=== PATIENT | female | born 1995 | race Caucasian/White ===

== ENCOUNTER 2018-07-14 12:56 | Emergency (ER) | payer BC ==
[~2018-07-14] VITALS: Ht 160 cm; Wt 100.0 kg
[~2018-07-14 12:56] MED LIST: CIPROFLOXACN500 MG PO; PERCOCET 5/325M1 TAB PO
[2018-07-14] MEDS ORDERED: PROVENTIL108 MCG/AC IN (14:31)
[2018-07-14] MEDS ORDERED: ZITHROMAX250 MG PO (14:31)
[2018-07-14 14:51] VITALS: BP 150/88
== END 2018-07-14 14:59 | disposition home or self-care (01) | DRG 203 ==
LOC: ED 12:56
DX: J40 Bronchitis, not specified as acute or chronic (principal)

== ENCOUNTER 2021-09-09 10:31 | Emergency (ER) | payer SELFPAY ==
[~2021-09-09] VITALS: Ht 160 cm; Wt 119.8 kg
[~2021-09-09 10:31] MED LIST changes: +PROVENTIL108 MCG/AC IN; +ZITHROMAX250 MG PO
[2021-09-09 11:16] VITALS: BP 133/63
[2021-09-09] MEDS ORDERED: IBUPROFEN600 MG PO (12:24)
== END 2021-09-09 12:55 | disposition home or self-care (01) | DRG 563 ==
LOC: ED 10:31
DX: S93.402A Sprain of unspecified ligament of left ankle, initial encounter (principal); W17.2XXA Fall into hole, initial encounter; Y92.009 Unspecified place in unspecified non-institutional (private) residence as the place of occurrence of the external cause